=== PATIENT | male | born 1945 | race Caucasian/White ===

== ENCOUNTER 2021-01-19 08:56 | Outpatient (REF) | payer MEDICARE, SELFPAY ==
--- NOTE | ~2021-01-19 | MR_ITS ---
EXAMINATION: MR CERVICAL SPINE WITHOUT CONTRAS, LIMITED CLINICAL INFORMATION: Weakness. Right arm radiculopathy. COMPARISON: None TECHNIQUE: MRI of the cervical spine was obtained using routine sequences without contrast. Significantly limited motion-degraded study. FINDINGS: VERTEBRAL BODIES AND PARASPINAL SOFT TISSUES: The marrow signal is within normal limits. Chronic disc desiccation evident at the C3-C4, C4-C5, and C5-C6 levels. There is moderate disc space narrowing with endplate spurring at the C6-C7 level. No compression fractures identified. Mild anterolisthesis with bulky anterolateral endplate spurring noted at the C7-T1 level. No obvious marrow or soft tissue edema visible. The paraspinal soft tissues are grossly unremarkable. The lung apices are clear. CERVICOMEDULLARY JUNCTION AND VISUALIZED POSTERIOR FOSSA: The craniovertebral junction and imaged portions of the brain parenchyma appear normal. No obvious cord signal abnormality or syrinx is seen. SPINAL LEVELS: C2-C3: No focal disc protrusion or central canal stenosis. Patent foramina. C3-C4: Mild endplate spurring. No central canal stenosis or disc protrusion. Bilateral facet arthropathy with partial ankylosis on the left side. Patent foramina. C4-C5: Disc desiccation and mild disc bulge with endplate spurring and rhbp-[id number] facet arthropathy. Moderate right foraminal narrowing and milder left foraminal encroachment. C5-C6: Disc desiccation and shallow disc-osteophyte complex without central canal stenosis. Drbq-az-pumtipko foraminal narrowing, worse on the left side. C6-C7: Broad-based disc-osteophyte complex with mild ventral cord and thecal sac deformity. Mild central canal stenosis. Significant bilateral foraminal narrowing and hypertrophic facet arthropathy with potential mass effect upon the exiting C7 nerve roots. C7-T1: Mild anterolisthesis. No central canal stenosis. [id number] facet arthropathy, worse on the right side with bulky anterior endplate spurring. Mild left foraminal narrowing. [id number] right foraminal encroachment due to osseous spurring with potential mass effect upon the exiting right C8 nerve root. MR/MR cervical spine wo con IMPRESSION: Significantly limited motion-degraded examination. No definite cord abnormality. Moderate right foraminal narrowing due to uncovertebral joint spurring at the C4-C5 level. Disc-osteophyte complex with mild central canal stenosis and severe bilateral foraminal narrowing at the C6-C7 level. Potential mass effect upon the exiting C7 nerve roots from foraminal encroachment. Mild anterolisthesis and significant facet arthropathy at the C7-T1 level with endplate spurring anteriorly. Qckkrzgs-ju-qucrdw right foraminal encroachment from osseous spurring with potential mass effect upon the right C8 nerve root.
== END 2021-01-19 08:57 | disposition home or self-care (01) ==
LOC: HO.MRI 08:56
PROVIDERS: PCP Family Medicine; Visit Provider Family Medicine
DX: M54.12 Radiculopathy, cervical region (principal)
CPT/HCPCS: 72141